=== PATIENT | male | born 1955 | race Caucasian/White ===

== ENCOUNTER 2018-04-21 15:39 | Emergency (ER) | payer OTHER ==
[~2018-04-21] VITALS: Ht 182.9 cm; Wt 95.3 kg
[~2018-04-21 15:39] MED LIST: ASPIR 8181 MG PO; CARAFATE 1 GM TA1 G1 PO; MULTIVITAMINS1 EAC7; NICODERM CQ1 EAC1 TD; NORCO 5-325 TA1 EACH PO; PERCOCET 5-3251 EACH PO; POLYMYXIN B/TMP10 ML OP; POLYMYXIN B/TMP10 ML OPHTHALMIC; TAMSULOSIN HCL0.4 M1 PO; TOPROL XL25 MG PO; ZOFRAN4 MG PO
[2018-04-21] MEDS ORDERED: PERCOCET PO (17:04)
[2018-04-21 17:19] VITALS: BP 147/89
== END 2018-04-21 17:20 | disposition home or self-care (01) ==
LOC: M.ERS 15:39
DX: S82.65XA Nondisplaced fracture of lateral malleolus of left fibula, initial encounter for closed fracture (principal); F17.210 Nicotine dependence, cigarettes, uncomplicated; Z87.442 Personal history of urinary calculi; Z88.8 Allergy status to other drugs, medicaments and biological substances; X50.1XXA Overexertion from prolonged static or awkward postures, initial encounter; Y93.89 Activity, other specified; Y92.89 Other specified places as the place of occurrence of the external cause; Y99.8 Other external cause status

== ENCOUNTER 2018-06-08 19:33 | Emergency (ER) | payer OTHER ==
[~2018-06-08] VITALS: Ht 182.9 cm; Wt 95.3 kg
[~2018-06-08 19:33] MED LIST changes: +PERCOCET PO
[2018-06-08 21:10] LABS: ABSOLUTE EOSINOPHILS 0.1 thou/uL (0.0-0.7); ABSOLUTE LYMPHOCYTES 2.7 thou/uL (0.8-5.3); ABSOLUTE MONOCYTES 0.7 thou/uL (0.0-1.2); ABSOLUTE NEUTROPHILS 5.2 thou/uL (1.6-8.1); BASOPHILS 0.4 %; EOSINOPHILS 1.7 %; HEMOGLOBIN 14.7 gm/dL (14.0-18.0); LYMPHOCYTES 30.7 %; MCH 27.8 pg (26.0-34.0); MCHC 32.6 g/dL (28.0-37.0); MCV 85.1 fL (80.0-100.0); MONOCYTES 7.6 %; MPV 7.1 fl. (7.2-11.1); NUCLEATED RBCS 0 /100WBC; PLATELET COUNT* 315 thou/uL (150-400); POLYS 59.6 %; RBC 5.29 mil/uL (4.50-6.00); RDW-CV 14.4 % (10.5-14.5); WBC 8.7 thou/uL (4.0-11.0)
[2018-06-08 21:25] LABS: CALCIUM 9.7 mg/dL (8.5-10.1); CREATININE 1.2 mg/dL (0.6-1.3); POTASSIUM 3.8 mmol/L (3.5-5.1)
[2018-06-08 21:29] LABS: ALBUMIN 3.9 g/dL (3.4-5.0); TOTAL BILIRUBIN 0.2 mg/dL (<0.1-1.0); TOTAL PROTEIN 8.1 g/dL (6.4-8.2)
[2018-06-08 22:30] LABS: URINE BILIRUBIN NEGATIVE (Negative); URINE BLOOD 2+ (Negative); URINE CLARITY CLEAR; URINE COLOR YELLOW; URINE GLUCOSE-RANDOM NEGATIVE (Negative); URINE KETONES NEGATIVE (Negative); URINE LEUKOCYTES-REFLEX NEGATIVE (Negative); URINE NITRITE-REFLEX NEGATIVE (Negative); URINE PROTEIN NEGATIVE (Negative); URINE SPECIFIC GRAVITY >= 1.030 (1.005-1.030); URINE UROBILINOGEN 0.2 E.U./dl (0.2-1.0)
[2018-06-08 22:42] LABS: CASTS None Seen /LPF (None Seen); SQUAMOUS NONE SEEN /LPF (0-3); URINE WBC-REFLEX None Seen /HPF (0-5)
[2018-06-08 22:43] LABS: BACTERIA-REFLEX 1-9 Few /HPF (None Seen); CRYSTALS None Seen /LPF (None Seen); URINE RBC 3-10 Few /HPF (0-2)
[2018-06-08] MEDS ORDERED: ZOFRAN4 MG PO (22:47)
[2018-06-08] MEDS ORDERED: PERCOCET 5-3251 EACH PO (22:47)
[2018-06-08] MEDS ORDERED: FLOMAX0.4 MG PO (22:47)
[2018-06-08 23:55] VITALS: BP 143/78
== END 2018-06-08 23:55 | disposition home or self-care (01) ==
LOC: M.ERS 19:33
PROVIDERS: Nurse Practitioner Family
DX: N20.1 Calculus of ureter (principal); R11.2 Nausea with vomiting, unspecified; F17.210 Nicotine dependence, cigarettes, uncomplicated; Z88.8 Allergy status to other drugs, medicaments and biological substances; Z87.442 Personal history of urinary calculi; Z98.890 Other specified postprocedural states

== ENCOUNTER 2018-06-12 08:48 | Emergency (ER) | payer OTHER ==
[~2018-06-12] VITALS: Ht 182.9 cm; Wt 95.3 kg
[~2018-06-12 08:48] MED LIST changes: +FLOMAX0.4 MG PO
[2018-06-12 09:19] LABS: ABSOLUTE EOSINOPHILS 0.2 thou/uL (0.0-0.7); ABSOLUTE LYMPHOCYTES 2.7 thou/uL (0.8-5.3); ABSOLUTE MONOCYTES 0.6 thou/uL (0.0-1.2); ABSOLUTE NEUTROPHILS 3.4 thou/uL (1.6-8.1); BASOPHILS 0.4 %; EOSINOPHILS 2.8 %; HEMATOCRIT 44.2 % (42.0-52.0); HEMOGLOBIN 14.2 gm/dL (14.0-18.0); MCH 27.3 pg (26.0-34.0); MCHC 32.1 g/dL (28.0-37.0); MCV 85.1 fL (80.0-100.0); MONOCYTES 8.9 %; MPV 6.8 fl. (7.2-11.1); NUCLEATED RBCS 0 /100WBC; PLATELET COUNT* 308 thou/uL (150-400); POLYS 48.9 %; RBC 5.19 mil/uL (4.50-6.00); RDW-CV 14.1 % (10.5-14.5)
[2018-06-12 09:29] LABS: CALCIUM 9.2 mg/dL (8.5-10.1); POTASSIUM 3.9 mmol/L (3.5-5.1)
[2018-06-12 09:50] LABS: URINE BILIRUBIN NEGATIVE (Negative); URINE BLOOD 1+ (Negative); URINE CLARITY CLEAR; URINE COLOR YELLOW; URINE GLUCOSE-RANDOM NEGATIVE (Negative); URINE KETONES NEGATIVE (Negative); URINE LEUKOCYTES-REFLEX NEGATIVE (Negative); URINE NITRITE-REFLEX NEGATIVE (Negative); URINE PROTEIN NEGATIVE (Negative); URINE UROBILINOGEN 0.2 E.U./dl (0.2-1.0)
[2018-06-12] MEDS ORDERED: FLOMAX0.4 MG PO (10:38)
[2018-06-12] MEDS ORDERED: ZOFRAN4 MG PO (10:38)
[2018-06-12] MEDS ORDERED: IBUPROFEN 800800 M1 PO (10:38)
[2018-06-12 10:47] VITALS: BP 157/77
== END 2018-06-12 10:48 | disposition home or self-care (01) ==
LOC: M.ERS 08:48
PROVIDERS: Emergency Medicine Emergency Medical Services
DX: N20.0 Calculus of kidney (principal); F17.210 Nicotine dependence, cigarettes, uncomplicated; Z87.442 Personal history of urinary calculi; Z88.0 Allergy status to penicillin

== ENCOUNTER 2019-01-23 20:06 | Emergency (ER) | payer OTHER ==
[~2019-01-23] VITALS: Ht 182.9 cm; Wt 99.8 kg
[~2019-01-23 20:06] MED LIST changes: +IBUPROFEN 800800 M1 PO
[2019-01-23 20:41] LABS: ABSOLUTE BASOPHILS 0.1 thou/uL (0.0-0.2); ABSOLUTE EOSINOPHILS 0.1 thou/uL (0.0-0.7); ABSOLUTE LYMPHOCYTES 3.2 thou/uL (0.8-5.3); ABSOLUTE MONOCYTES 0.7 thou/uL (0.0-1.2); ABSOLUTE NEUTROPHILS 5.3 thou/uL (1.6-8.1); BASOPHILS 0.7 %; EOSINOPHILS 1.5 %; HEMATOCRIT 45.9 % (42.0-52.0); HEMOGLOBIN 15.2 gm/dL (14.0-18.0); LYMPHOCYTES 33.8 %; MCH 27.6 pg (26.0-34.0); MCHC 33.2 g/dL (28.0-37.0); MCV 83.1 fL (80.0-100.0); MONOCYTES 7.7 %; MPV 7.1 fl. (7.2-11.1); NUCLEATED RBCS 0 /100WBC; PLATELET COUNT* 303 thou/uL (150-400); POLYS 56.3 %; RBC 5.52 mil/uL (4.50-6.00); WBC 9.4 thou/uL (4.0-11.0)
[2019-01-23 20:45] LABS: CREATININE 1.2 mg/dL (0.6-1.3)
[2019-01-23 21:36] LABS: URINE BILIRUBIN NEGATIVE (Negative); URINE BLOOD 2+ (Negative); URINE CLARITY CLEAR; URINE COLOR YELLOW; URINE GLUCOSE-RANDOM NEGATIVE (Negative); URINE KETONES NEGATIVE (Negative); URINE LEUKOCYTES-REFLEX NEGATIVE (Negative); URINE NITRITE-REFLEX NEGATIVE (Negative); URINE PROTEIN NEGATIVE (Negative); URINE SPECIFIC GRAVITY 1.025 (1.005-1.030); URINE UROBILINOGEN 0.2 E.U./dl (0.2-1.0)
[2019-01-23] MEDS ORDERED: NORCO 7.5-3251 EACH PO (22:24)
[2019-01-23] MEDS ORDERED: FLOMAX0.4 MG PO (22:24)
[2019-01-23 22:27] LABS: SQUAMOUS 0-3 Few /LPF (0-3)
[2019-01-23 22:28] LABS: CASTS None Seen /LPF (None Seen); MUCUS 0-3 Light strn/LPF (None Seen)
[2019-01-23 22:29] LABS: URINE WBC-REFLEX 0-5 Rare /HPF (0-5)
[2019-01-23 22:30] LABS: BACTERIA-REFLEX 1-9 Few /HPF (None Seen); CRYSTALS None Seen /LPF (None Seen); URINE RBC 3-10 Few /HPF (0-2)
[2019-01-23 22:37] VITALS: BP 148/87
== END 2019-01-23 22:39 | disposition home or self-care (01) ==
LOC: M.ERS 20:06
PROVIDERS: Emergency Medicine
DX: N20.0 Calculus of kidney (principal); F17.210 Nicotine dependence, cigarettes, uncomplicated; Z88.8 Allergy status to other drugs, medicaments and biological substances; Z87.442 Personal history of urinary calculi

== ENCOUNTER 2019-02-07 01:16 | Emergency (ER) | payer OTHER ==
[~2019-02-07] VITALS: Ht 182.9 cm; Wt 99.8 kg
[~2019-02-07 01:16] MED LIST changes: +NORCO 7.5-3251 EACH PO
[2019-02-07 01:51] LABS: ABSOLUTE EOSINOPHILS 0.1 thou/uL (0.0-0.7); ABSOLUTE LYMPHOCYTES 1.2 thou/uL (0.8-5.3); ABSOLUTE MONOCYTES 0.5 thou/uL (0.0-1.2); BASOPHILS 0.2 %; EOSINOPHILS 1.1 %; HEMATOCRIT 45.1 % (42.0-52.0); MCH 27.5 pg (26.0-34.0); MCHC 33.3 g/dL (28.0-37.0); MCV 82.6 fL (80.0-100.0); MONOCYTES 4.7 %; MPV 7.2 fl. (7.2-11.1); NUCLEATED RBCS 0 /100WBC; PLATELET COUNT* 319 thou/uL (150-400); RBC 5.46 mil/uL (4.50-6.00); RDW-CV 14.1 % (10.5-14.5); WBC 9.7 thou/uL (4.0-11.0)
[2019-02-07 02:03] LABS: PROTIME 10.1 Seconds (9.20-11.50)
[2019-02-07 02:10] LABS: URINE BILIRUBIN NEGATIVE (Negative); URINE BLOOD 2+ (Negative); URINE CLARITY CLEAR; URINE COLOR YELLOW; URINE GLUCOSE-RANDOM NEGATIVE (Negative); URINE KETONES NEGATIVE (Negative); URINE LEUKOCYTES-REFLEX NEGATIVE (Negative); URINE NITRITE-REFLEX NEGATIVE (Negative); URINE PROTEIN NEGATIVE (Negative); URINE SPECIFIC GRAVITY 1.015 (1.005-1.030); URINE UROBILINOGEN 0.2 E.U./dl (0.2-1.0)
[2019-02-07 02:18] LABS: ANION GAP 10 mmol/L (7-16); BUN 17 mg/dL (7-18); CALCIUM 9.8 mg/dL (8.5-10.1); CHLORIDE 104 mmol/L (98-107); CO2 27 mmol/L (21-32); CREATININE 1.3 mg/dL (0.6-1.3); GLUCOSE 155 mg/dL (70-99); POTASSIUM 3.7 mmol/L (3.5-5.1); SODIUM 141 mmol/L (136-145); TROPONIN-I LEVEL <0.06 ng/mL (<0.06)
[2019-02-07 02:20] LABS: INFLUENZA A ANTIGEN None Detected (None Detect); INFLUENZA B ANTIGEN None Detected (None Detect)
[2019-02-07 02:23] LABS: ALBUMIN 3.5 g/dL (3.4-5.0); ALKALINE PHOSPHATASE 95 U/L (46-116); NT-PRO BRAIN NAT PEPTIDE 62 pg/mL (<300); SGOT 14 U/L (15-37); SGPT 23 U/L (30-65); TOTAL BILIRUBIN 0.1 mg/dL (<0.1-1.0); TOTAL PROTEIN 7.6 g/dL (6.4-8.2)
[2019-02-07 02:42] LABS: CASTS None Seen /LPF (None Seen); MUCUS 0-3 Light strn/LPF (None Seen); SQUAMOUS 0-3 Few /LPF (0-3)
[2019-02-07 02:44] LABS: BACTERIA-REFLEX 1-9 Few /HPF (None Seen); CRYSTALS None Seen /LPF (None Seen); URINE RBC 3-10 Few /HPF (0-2); URINE WBC-REFLEX 6-15 Few /HPF (0-5)
[2019-02-07] MEDS ORDERED: AZITHROMYCIN 2250 MG PO (03:15)
[2019-02-07 03:40] VITALS: BP 140/84
--- NOTE | 2019-02-07 15:14 | EKG ---
[place] [address] ELECTROCARDIOGRAM REPORT Name: LEONELA PIMENTEL [id number] Admission: 02/07/19 Attend Phys: Discharge: 02/07/19 Date of : 53 Report #: [id number] THIS REPORT FOR: //name// [facility] ED Test Date: 2019-02-07 Test Time: 01:20:51 Pat Name: LEONELA PIMENTEL Department: Room: Gender: M Bronc Buster: COLE : 1955 Requested By: Shaila Mohamud Order Number: [id number] Reading MD: Taco Marcelino Measurements Intervals [place] Rate: 124 P: 73 ME: 168 QRS: 265 QRSD: 97 T: 63 QT: 306 QTc: 440 Interpretive Statements Sinus tachycardia Probable left atrial enlargement LAD, consider left anterior fascicular block Compared to ECG 10/31/2016 00:59:56 Sinus rhythm no longer present Electronically Signed On 02-07-2019 15:14:18 CDT by Taco Marcelino [email or web address] <ELECTRONICALLY SIGNED> By: Taco Marcelino MD, [facility] 02/07/19 1514 0120 0120 Taco Marcelino MD, FACC /EPI
== END 2019-02-07 03:40 | disposition home or self-care (01) ==
LOC: M.ERS 01:16
PROVIDERS: Emergency Medicine
DX: R00.0 Tachycardia, unspecified (principal); R09.81 Nasal congestion; Z87.442 Personal history of urinary calculi; Z87.891 Personal history of nicotine dependence; Z88.8 Allergy status to other drugs, medicaments and biological substances

== ENCOUNTER 2019-06-30 00:55 | Emergency (ER) | payer BC ==
[~2019-06-30] VITALS: Ht 182.9 cm; Wt 93.0 kg
[~2019-06-30 00:55] MED LIST changes: +AZITHROMYCIN 2250 MG PO
[2019-06-30 02:58] LABS: CREATININE 1.1 mg/dL (0.6-1.3); POTASSIUM 3.8 mmol/L (3.5-5.1); TOTAL BILIRUBIN 0.2 mg/dL (<0.1-1.0)
[2019-06-30 02:59] LABS: ALBUMIN 3.4 g/dL (3.4-5.0); HEMATOCRIT 44.2 % (42.0-52.0); HEMOGLOBIN 14.4 gm/dL (14.0-18.0); MCH 28.2 pg (26.0-34.0); MCHC 32.5 g/dL (28.0-37.0); MCV 86.7 fL (80.0-100.0); MPV 7.5 fl. (7.2-11.1); RBC 5.1 mil/uL (4.50-6.00); RDW-CV 14.2 % (10.5-14.5); TOTAL PROTEIN 7.1 g/dL (6.4-8.2); URINE CLARITY CLEAR; URINE COLOR YELLOW; WBC 8.7 thou/uL (4.0-11.0)
[2019-06-30 03:00] LABS: SQUAMOUS 4-10 Moderate /LPF (0-3); URINE BILIRUBIN NEGATIVE (Negative); URINE BLOOD 3+ (Negative); URINE GLUCOSE-RANDOM NEGATIVE (Negative); URINE KETONES NEGATIVE (Negative); URINE LEUKOCYTES NEGATIVE (Negative); URINE NITRITE NEGATIVE (Negative); URINE PROTEIN 1+ (Negative); URINE SPECIFIC GRAVITY > 1.030 (1.005-1.030); URINE UROBILINOGEN 0.2 E.U./dl (0.2-1.0)
[2019-06-30 03:01] LABS: CASTS None Seen /LPF (None Seen); URINE RBC >20 Many /HPF (0-2); URINE WBC 6-15 Few /HPF (0-5)
[2019-06-30 03:08] LABS: CRYSTALS None Seen /LPF (None Seen)
[2019-06-30] MEDS ORDERED: NORCO 5-325 TA1 EAC1 PO (03:08)
[2019-06-30] MEDS ORDERED: ZOFRAN ODT4 MG PO (03:08)
[2019-06-30] MEDS ORDERED: FLOMAX0.4 MG PO (03:08)
[2019-06-30 03:16] VITALS: BP 146/78
== END 2019-06-30 03:16 | disposition home or self-care (01) ==
LOC: M.ERS 00:55
PROVIDERS: Personal Emergency Response Attendant
DX: N13.1 Hydronephrosis with ureteral stricture, not elsewhere classified (principal); N23 Unspecified renal colic; Z87.891 Personal history of nicotine dependence; Z88.8 Allergy status to other drugs, medicaments and biological substances; Z87.442 Personal history of urinary calculi

== ENCOUNTER 2019-07-12 14:38 | Emergency (ER) | payer BC ==
[~2019-07-12] VITALS: Ht 182.9 cm; Wt 90.7 kg
[~2019-07-12 14:38] MED LIST changes: +NORCO 5-325 TA1 EAC1 PO; +ZOFRAN ODT4 MG PO
[2019-07-12 14:48] VITALS: BP 143/80
[2019-07-12] MEDS ORDERED: CORTISPORIN OTI10 M2 OTIC (15:13)
[2019-07-12] MEDS ORDERED: ZPAK PO (15:13)
== END 2019-07-12 15:22 | disposition home or self-care (01) ==
LOC: M.ERS 14:38
DX: H92.03 Otalgia, bilateral (principal); Z88.1 Allergy status to other antibiotic agents; Z88.8 Allergy status to other drugs, medicaments and biological substances; Z87.442 Personal history of urinary calculi

== ENCOUNTER 2019-08-06 00:53 | Emergency (ER) | payer BC ==
[~2019-08-06] VITALS: Ht 182.9 cm; Wt 90.7 kg
[~2019-08-06 00:53] MED LIST changes: +CORTISPORIN OTI10 M2 OTIC; +ZPAK PO
[2019-08-06 01:20] LABS: URINE BILIRUBIN NEGATIVE (Negative); URINE BLOOD 2+ (Negative); URINE CLARITY CLEAR; URINE COLOR YELLOW; URINE GLUCOSE-RANDOM NEGATIVE (Negative); URINE KETONES NEGATIVE (Negative); URINE LEUKOCYTES-REFLEX NEGATIVE (Negative); URINE NITRITE-REFLEX NEGATIVE (Negative); URINE PROTEIN NEGATIVE (Negative); URINE UROBILINOGEN 0.2 E.U./dl (0.2-1.0)
[2019-08-06 01:25] LABS: ABSOLUTE EOSINOPHILS 0.2 thou/uL (0.0-0.7); ABSOLUTE LYMPHOCYTES 2.8 thou/uL (0.8-5.3); ABSOLUTE MONOCYTES 0.7 thou/uL (0.0-1.2); BASOPHILS 0.6 %; EOSINOPHILS 2.7 %; HEMATOCRIT 42.4 % (42.0-52.0); HEMOGLOBIN 14.1 gm/dL (14.0-18.0); LYMPHOCYTES 36.2 %; MCH 28.4 pg (26.0-34.0); MCHC 33.3 g/dL (28.0-37.0); MCV 85.1 fL (80.0-100.0); MONOCYTES 9.3 %; MPV 7.1 fl. (7.2-11.1); NUCLEATED RBCS 0 /100WBC; PLATELET COUNT* 295 thou/uL (150-400); POLYS 51.2 %; RBC 4.98 mil/uL (4.50-6.00); RDW-CV 14.4 % (10.5-14.5); WBC 7.8 thou/uL (4.0-11.0)
[2019-08-06 01:26] LABS: BACTERIA-REFLEX 1-9 Few /HPF (None Seen); CRYSTALS None Seen /LPF (None Seen); HYALINE CASTS 0-3 Few /LPF (None Seen); MUCUS 4-6 Moderate strn/LPF (None Seen); SQUAMOUS 0-3 Few /LPF (0-3); URINE RBC >20 Many /HPF (0-2); URINE WBC-REFLEX 0-5 Rare /HPF (0-5)
[2019-08-06 01:30] LABS: CREATININE 1.1 mg/dL (0.6-1.3)
[2019-08-06 01:34] LABS: ALBUMIN 3.6 g/dL (3.4-5.0); TOTAL BILIRUBIN 0.1 mg/dL (<0.1-1.0); TOTAL PROTEIN 7.1 g/dL (6.4-8.2)
[2019-08-06] MEDS ORDERED: PERCOCET 5-3251 EACH PO (03:06)
[2019-08-06] MEDS ORDERED: FLOMAX0.4 MG PO (03:06)
[2019-08-06 03:11] VITALS: BP 147/87
== END 2019-08-06 03:11 | disposition home or self-care (01) ==
LOC: M.ERS 00:53
PROVIDERS: Family Medicine
DX: N20.0 Calculus of kidney (principal); Z88.1 Allergy status to other antibiotic agents; Z88.8 Allergy status to other drugs, medicaments and biological substances; Z87.891 Personal history of nicotine dependence